=== PATIENT | female | born 1940 | race African-American/Black ===

== ENCOUNTER 2016-11-02 09:59 | Outpatient (RCR) | payer MEDICARE, BC ==
[~2016-11-02 09:59] MED LIST: ALBUTEROL SULF8.5 GM INH; ARICEPT5 MG ORAL; ASPIRIN81 MG ORAL; CALCIUM600 M1 PO; CYMBALTA60 MG ORAL; GALANTAMINE HBR16 MG PO; KEFLEX500 MG ORAL; MELATONIN5 M4 ORAL; NAMENDA XR28 MG PO; PREDNISONE20 MG ORAL; VITAMIN D1000 UNI1 ORAL
== END 2016-11-30 | disposition home or self-care (01) ==
LOC: PTY 09:59
DX: R26.9 Unspecified abnormalities of gait and mobility (principal)

== ENCOUNTER 2016-12-02 09:58 | Outpatient (RCR) | payer MEDICARE, BC | END 2016-12-28 | disposition home or self-care (01) | LOC: PTY 09:58 | DX: R26.9 Unspecified abnormalities of gait and mobility (principal) | CPT/HCPCS: 97110; G8979; G8980 ==

== ENCOUNTER 2017-04-21 10:00 | Outpatient (RCR) | payer MEDICARE, BC | END 2017-04-29 | disposition home or self-care (01) | LOC: PTY 10:00 | DX: R26.9 Unspecified abnormalities of gait and mobility (principal); M54.5 Low back pain; M25.569 Pain in unspecified knee; G30.9 Alzheimer's disease, unspecified; F02.80 Dementia in other diseases classified elsewhere, unspecified severity, without behavioral disturbance, psychotic disturbance, mood disturbance, and anxiety; M48.00 Spinal stenosis, site unspecified; I10 Essential (primary) hypertension | CPT/HCPCS: 97110; 97162; G8978; G8979 ==

== ENCOUNTER 2017-05-10 10:53 | Outpatient (RCR) | payer MEDICARE, BC | END 2017-05-30 | disposition home or self-care (01) | LOC: PTY 10:53 | DX: R26.9 Unspecified abnormalities of gait and mobility (principal); M54.5 Low back pain; M25.569 Pain in unspecified knee; G30.9 Alzheimer's disease, unspecified; F02.80 Dementia in other diseases classified elsewhere, unspecified severity, without behavioral disturbance, psychotic disturbance, mood disturbance, and anxiety; M48.00 Spinal stenosis, site unspecified; I10 Essential (primary) hypertension ==

== ENCOUNTER 2017-06-28 11:00 | Outpatient (RCR) | payer MEDICARE, BC | END 2017-06-30 | disposition home or self-care (01) | LOC: PTY 11:00 | DX: R26.9 Unspecified abnormalities of gait and mobility (principal); M54.5 Low back pain; M25.569 Pain in unspecified knee; G30.9 Alzheimer's disease, unspecified; F02.80 Dementia in other diseases classified elsewhere, unspecified severity, without behavioral disturbance, psychotic disturbance, mood disturbance, and anxiety; M48.00 Spinal stenosis, site unspecified; I10 Essential (primary) hypertension ==

== ENCOUNTER 2017-07-07 11:04 | Outpatient (RCR) | payer MEDICARE, BC | END 2017-07-30 | disposition home or self-care (01) | LOC: PTY 11:04 | DX: R26.9 Unspecified abnormalities of gait and mobility (principal); G30.9 Alzheimer's disease, unspecified; M48.00 Spinal stenosis, site unspecified; I10 Essential (primary) hypertension; F03.90 Unspecified dementia, unspecified severity, without behavioral disturbance, psychotic disturbance, mood disturbance, and anxiety; G47.9 Sleep disorder, unspecified | CPT/HCPCS: 97110; G8978; G8979 ==

== ENCOUNTER → 2017-08-30 | Outpatient (RCR) | payer MEDICARE, BC | END | disposition home or self-care (01) | LOC: PTY 08-11 10:58 | DX: R26.9 Unspecified abnormalities of gait and mobility (principal); M54.5 Low back pain; M25.569 Pain in unspecified knee; G30.9 Alzheimer's disease, unspecified; F02.80 Dementia in other diseases classified elsewhere, unspecified severity, without behavioral disturbance, psychotic disturbance, mood disturbance, and anxiety; M48.00 Spinal stenosis, site unspecified; I10 Essential (primary) hypertension ==

== ENCOUNTER 2017-09-08 11:15 | Outpatient (RCR) | payer MEDICARE, BC | END 2017-09-29 | disposition home or self-care (01) | LOC: PTY 11:15 | DX: R26.9 Unspecified abnormalities of gait and mobility (principal); M54.5 Low back pain; M25.569 Pain in unspecified knee; G30.9 Alzheimer's disease, unspecified; F02.80 Dementia in other diseases classified elsewhere, unspecified severity, without behavioral disturbance, psychotic disturbance, mood disturbance, and anxiety; M48.00 Spinal stenosis, site unspecified; I10 Essential (primary) hypertension | CPT/HCPCS: 97110; G8979; G8980 ==

== ENCOUNTER 2018-02-16 11:00 | Outpatient (RCR) | payer MEDICARE, BC | END 2018-02-27 | disposition home or self-care (01) | LOC: PTY 11:00 | DX: M25.512 Pain in left shoulder (principal); R26.9 Unspecified abnormalities of gait and mobility | CPT/HCPCS: 97110; 97162; G8978; G8979 ==

== ENCOUNTER 2018-02-28 11:00 | Outpatient (RCR) | payer MEDICARE, BC | END 2018-03-30 | disposition home or self-care (01) | LOC: PTY 11:00 | DX: M25.512 Pain in left shoulder (principal) ==

== ENCOUNTER 2018-04-12 11:00 | Outpatient (RCR) | payer MEDICARE, BC | END 2018-04-29 | disposition home or self-care (01) | LOC: PTY 11:00 | DX: R26.9 Unspecified abnormalities of gait and mobility (principal); M54.5 Low back pain; M25.569 Pain in unspecified knee; G30.9 Alzheimer's disease, unspecified; F02.80 Dementia in other diseases classified elsewhere, unspecified severity, without behavioral disturbance, psychotic disturbance, mood disturbance, and anxiety; M48.00 Spinal stenosis, site unspecified; I10 Essential (primary) hypertension | CPT/HCPCS: 97110; G8978; G8979 ==

== ENCOUNTER 2018-05-31 10:00 | Outpatient (RCR) | payer MEDICARE, BC | END 2018-06-30 | disposition home or self-care (01) | LOC: PTY 10:00 | DX: R26.9 Unspecified abnormalities of gait and mobility (principal); M54.5 Low back pain; M25.569 Pain in unspecified knee; G30.9 Alzheimer's disease, unspecified; F02.80 Dementia in other diseases classified elsewhere, unspecified severity, without behavioral disturbance, psychotic disturbance, mood disturbance, and anxiety; M48.00 Spinal stenosis, site unspecified; I10 Essential (primary) hypertension | CPT/HCPCS: 97110; G8979; G8980 ==